=== PATIENT | female | born 1955 | race Caucasian/White ===

== ENCOUNTER 2018-08-18 21:34 | Emergency (ER) | payer MEDICAID, OTHER ==
[~2018-08-18] VITALS: Ht 162.6 cm; Wt 63.8 kg
[2018-08-18 21:40] VITALS: Ht 162.6 cm; Wt 63.8 kg
[2018-08-19] MEDS ORDERED: DIPHTH/TET/ACEL PERTUSS (ADULT) 0.5 ML VIAL IM* ONE (01:00)
[2018-08-19] MEDS ORDERED: LIDOCAINE 1%/EPI (MDV) 50 ML INJ INJ ONE (01:30)
--- NOTE | 2018-08-19 01:54 | ERD ---
ER Documentation Chief Complaint Chief Complaint trip and fall last night, +lac to forehead. -dizziness/blood thinners HPI 63-year-old female presents with laceration to the forehead. States that she was walking last night when she tripped and hit her head on a metal table. Denies any preceding dizziness, loss of consciousness, chest pain, shortness of breath. Denies any post incident amnesia, vomiting, nausea, headache. She states that she is not up-to-date on her vaccines. Not on blood thinners. ROS All systems reviewed and are negative except as per history of present illness. Allergies Allergies: Coded Allergies: Penicillins (Verified Allergy, Unknown, 08/18/18) codeine (Verified Allergy, Unknown, 08/18/18) PMhx/Soc Medical and Surgical Hx: pt denies Surgical Hx Hx Miscellaneous Medical Probl: Yes (chronic back and arthritis ) Hx Alcohol Use: No Hx Substance Use: No Hx Tobacco Use: No FmHx Family History: No diabetes, No coronary disease, No other Physical Exam Vitals Vital Signs Date Temp Pulse Resp B/P (MAP) Pulse Ox O2 O2 Flow FiO2 Time Delivery Rate 08/18/18 98.8 84 16 171/88 98 21:40 (115) Physical Exam Const: No acute distress Head: Atraumatic Eyes: Normal Conjunctiva ENT: Normal External Ears, Nose and Mouth. Neck: Full range of motion. No meningismus. Resp: Clear to auscultation bilaterally Cardio: Regular rate and rhythm, no murmurs Abd: Soft, non tender, non distended. Normal bowel sounds Skin: Approximate 4 cm laceration noted over the forehead without any evidence of foreign bodies, discharge, underlying skull fracture. Back: No midline or flank tenderness Ext: No cyanosis, or edema Neur: Awake and alert Psych: Normal Mood and Affect Neuro: M/S: Alert and oriented Face: EOMI, face and pharynx with normal sensation and function Motor: Normal strength throughout Sensation: Normal sensation throughout Speech: Normal Cerebel: Normal coordination Normal gait Normal finger to nose DTR: 2+ and symmetric upper/lower extremities Results 24 hrs Current Medications Medications Dose Sig/Carley Start Time Status Last (Trade) Ordered Route PRN Stop Time Admin Dose Reason Admin Diphtheria/ 0.5 ml ONCE ONCE 08/19/18 DC 08/19/18 Tetanus/Acell IM* 01:00 08/19/18 01:01 Pertussis 01:01 (Adacel) Lidocaine/ 20 ml ONCE ONCE 08/19/18 Cancel Epinephrine INJ 01:30 08/19/18 (Xylocaine 01:31 1%/ Epi (Mdv)) Lidocaine/ 20 ml ONCE ONCE 08/19/18 Epinephrine INJ 02:00 08/19/18 (Xylocaine 02:01 1%/ Epi (Mdv) 20 ml) Bacitracin 1 applic ONCE ONCE 08/19/18 (Bacitracin TOP 02:00 08/19/18 Oint (Ud)) 02:01 Procedures/MDM DIAGNOSTIC IMAGING REPORT Patient: JOHAN RODRIGUEZ : 1955 Age: 63 Sex: F MR #: [id number] DOS: 08/19/189 Ordering MD: CELESTINO TOMAS PA-C Location: [facility] Room/Bed: PROCEDURE: CT Brain without contrast. CLINICAL INDICATION: 63-year-old. Acute trauma. Head injury. TECHNIQUE: A CT of the brain was performed on a multi-slice CT scanner utilizing axial imaging from the skull base through the vertex without IV contrast. Multiplanar reformatted images were made. Images were reviewed on a PACS workstation. One or more the following dose reduction techniques were utilized: Automated exposure control, adjustment of mA/ or kV according to patient's size, or use of iterative reconstruction technique. DICOM images are available for review. The CTDIvol is 38.01 mGy and the DLP is 634.23 mGycm. COMPARISON: None FINDINGS: No mass effect or midline shift. Normal ventricles for age. No acute intra-axial or extra-axial hemorrhage. No subdural collection. Martins - white matter differentiation is maintained. Left frontal outer table osteoma. Visualized paranasal sinuses are clear. Mastoid air cells are clear. IMPRESSION: 1. No acute intracranial hemorrhage or subdural collection. 2. Shallow left frontal outer table osteoma. RPTAT: HL[facility] Physician Radah Date Time Electronically viewed and signed by Physician Radha on 08/19/2018 01:44 RS/ CC: CELESTINO TOMAS PA-C [id number] MDM: Since the patient has waited 24 hours before being seen for laceration, it is not appropriate to close laceration at this time due to possible complications of infection. Bacitracin was placed on the wound in the ER wound was also irrigated and given clean dressing. Patient will be placed on clindamycin and wound will be left to heal secondary intention. CT was done and results within normal limits. Patient will follow-up in 2 days for wound check. Patient advised to change bandages daily. I well suspicion for skull fracture, intracranial hemorrhage, or any other emergent condition. Patient return in 48 hours for wound check. Patient discharged with strict ER precautions. Patient advised to follow up with PMD. All questions answered at discharge. Departure Diagnosis: Primary Impression: Laceration Condition: Stable GAGAN GOYAL Aug 19, 2018 01:54
[2018-08-19] MEDS ORDERED: CLIN300C10 PO (01:58)
[2018-08-19] MEDS ORDERED: BACITUD TOP (01:59)
[2018-08-19] MEDS ORDERED: LIDOCAINE 1%/EPI (1:100,000) (MDV) 20 ML INJ ONE (02:00)
[2018-08-19] MEDS ORDERED: BACITRACIN 0.9 GM OINT TOP ONE (02:00)
[2018-08-19 02:26] VITALS: BP 144/65; PULSE 63; RESP 18
== END 2018-08-19 02:27 | disposition home or self-care (01) ==
LOC: FTE 21:34
DX: S01.81XA Laceration without foreign body of other part of head, initial encounter (principal); W01.190A Fall on same level from slipping, tripping and stumbling with subsequent striking against furniture, initial encounter; Y92.9 Unspecified place or not applicable; Z23 Encounter for immunization
CPT/HCPCS: 70450; 90471; 90715; Z7502; Z7610